=== PATIENT | female | born 1980 | race Hispanic/Latino ===

== ENCOUNTER 2019-03-22 17:20 | Emergency (ER) | payer BC, OTHER ==
[2019-03-22] MEDS ORDERED: SODIUM CHLORIDE 0.9% 1000ML 1,000 ML IV ONE (18:16)
[2019-03-22] MEDS ORDERED: KETOROLAC TROMETHAMINE 30MG/ML ONE (18:16)
[2019-03-22] MEDS ORDERED: DEXAMETHASONE SOD PHOSPHATE 10MG/ML 1ML VIAL ONE (18:16)
== END 2019-03-22 19:55 | disposition home or self-care (01) ==
LOC: EDH 17:20
DX: G44.209 Tension-type headache, unspecified, not intractable (principal); Z98.890 Other specified postprocedural states
CPT/HCPCS: 81025; 96374; 96375; 99284; J1100; J1885; J7030